=== PATIENT | female | born 2000 | race Two or more races ===

== ENCOUNTER 2024-03-21 22:00 | Emergency (ER) | payer OTHER ==
[~2024-03-21] VITALS: Ht 162.6 cm; Wt 85.0 kg
[2024-03-21 22:13] VITALS: O2SAT 98
[2024-03-21 22:41] VITALS: TEMP 98.5; O2SAT 99
[2024-03-22 00:27] LABS: CLARITY URINE CLEAR (CLEAR); COLOR URINE YELLOW (YELLOW); GLUCOSE URINE NEGATIVE (NEGATIVE); KETONES URINE NEGATIVE (NEGATIVE); LEUKOCYTE ESTERASE URINE NEGATIVE (NEGATIVE); NITRITE URINE NEGATIVE (NEGATIVE); OCCULT BLOOD URINE NEGATIVE (NEGATIVE); PH URINE 5.5 (4.5-8.0); PROTEIN URINE NEGATIVE (NEGATIVE); SPECIFIC GRAVITY URINE 1.027 (1.005-1.030); UROBILINOGEN URINE 0.2 E.U./dL (0.2-1.0)
[2024-03-22 00:36] VITALS: BP 116/68; PULSE 78; RESP 16
[2024-03-22] MEDS: KETOROLAC 30MG/ML VIAL IV ONE (00:36)
[2024-03-22 00:40] LABS: BASOPHILS % 0.5 % (0.0-2.0); EOSINOPHILS % 3.1 % (0.0-5.0); HEMATOCRIT. 40.2 % (36.0-48.0); HEMOGLOBIN. 13.8 g/dL (12.0-16.0); LYMPHOCYTES % 31.5 % (20.0-50.0); MEAN CORPUSCULAR HEMOGLOBIN 31.3 pg (28.0-32.0); MEAN CORPUSCULAR HGB CONC 34.2 g/dL (31.0-37.0); MEAN CORPUSCULAR VOLUME 91.5 fL (81.0-99.0); MONOCYTES % 7.1 % (2.0-8.0); NEUTROPHILS % 57.8 % (40.0-76.0); PLATELET 303 x1000/uL (130-400); RED BLOOD CELL COUNT 4.39 mill/uL (4.2-5.4); RED CELL DISTRIBUTION WIDTH 12.6 % (11.6-14.6); WHITE BLOOD COUNT 10.2 x1000/uL (4.5-11.0)
[2024-03-22 00:47] LABS: CARBON DIOXIDE 25 mEq/L (21-32); CHLORIDE 107 mEq/L (98-107); SODIUM 140 mEq/L (136-145)
[2024-03-22 00:48] LABS: CALCIUM 9.7 mg/dL (8.7-10.4)
[2024-03-22 00:52] LABS: CREATININE 0.8 mg/dL (0.6-1.0); GLUCOSE 92 mg/dL (70-105)
[2024-03-22 00:53] LABS: UREA NITROGEN BLOOD 15 mg/dL (9-23)
[2024-03-22 00:54] LABS: ALANINE AMINOTRANSFERASE 12 IU/L (10-49); ALBUMIN 4.7 g/dL (3.2-4.8); ASPARTATE AMINOTRANSFERASE 17 IU/L (<34)
[2024-03-22 00:55] LABS: BILIRUBIN TOTAL 0.3 mg/dL (0.1-1.0); PROTEIN TOTAL 7.2 g/dL (6.0-8.3)
[2024-03-22 01:04] LABS: BILIRUBIN DIRECT < 0.1 mg/dL (<=3.0)
[2024-03-22] MEDS: IOHEXOL-300 100 ML BOTTLE ONE (02:19)
[2024-03-22 03:27] LABS: HCG SCREEN NEGATIVE
== END 2024-03-22 02:50 | disposition home or self-care (01) ==
LOC: ER 22:00
DX: R10.32 Left lower quadrant pain (principal); K92.1 Melena
CPT/HCPCS: 99285; 81003; 81025; 36415; 74177; 80076; 80048; 84703; 85025; 86850; 86900; 86901; 96372; J1885; Q9967